=== PATIENT | female | born 1980 | race African-American/Black ===

== ENCOUNTER 2016-09-30 23:38 | Emergency (ER) | payer OTHER ==
[~2016-09-30] VITALS: Ht 170.2 cm; Wt 100.0 kg
[~2016-09-30 23:38] MED LIST: CEPH750C9 PO; POLY17PO6 PO; SULF1TAB7 PO
[2016-09-30 23:41] VITALS: BP 134/88; PULSE 76; RESP 16; O2SAT 99
--- NOTE | 2016-10-01 00:39 | ED.REPORT ---
HPI-Extremity Problem Lower Date of Service October 01, 2016 ED Provider: Dr. Bernabe Steiner D.O. A healthy 36 year old female with a remote history of right knee surgery presents to the ED with right knee pain onset 00:15 this evening, after moving it abnormally while putting a sheet on her couch. She also reports knee swelling and limited ROM due to pain. The patient denies additional injury/ trauma or other symptoms. Nursing Notes Stated Complaint: R KNEE PAIN Chief Complaint: Extremity Trauma Nursing Notes Reviewed: Yes Allergies: Coded Allergies: No Known Allergies (Unverified , 01/23/16) Scheduled Cephalexin (Keflex) 750 Mg Capsule 750 MG PO TID Polyethylene Glycol 3350 (Miralax) 17 Gm Powd.pack 17 GM PO DAILY dissolve 17g in 4 to 8 ounces of beverage and drink once daily Sulfamethoxazole/Trimeth 800-160 mg (Bactrim DS) 1 Each Tablet 1 TABLET PO BID General Time Seen by MD: 00:38 Chief Complaint Other (Right Knee Pain) Hx Obtained From: Patient Arrived By: Walk-in Onset Occurred: 16 - 30 minutes ago Symptom Duration: Since onset Location: : Knee right Quality: Painful Severity: Current: Moderate Severity: Maximum: Moderate Pertinent Negative: Relieved by nothing Immunizations: Tetanus w/in 5 - 10 yrs Recent Healthcare: No recent doctor visit Past Medical History Past Medical History None reported Past Surgical History R eye R knee cyst removal L breast Smoking History Never Smoker Social History Alcohol Use: Denies alcohol use Drug Use: Denies drug use Other Social History: Lives with children Ambulatory Status Independent Review of Systems Review of Systems Note: + Limited ROM of right knee due to pain Constitutional: Denies: Fever Musculoskeletal: Reports: Joint pain (Right knee), Joint swelling (Right knee) Complete sys rev & neg: except as marked. Respiratory: Denies: Non-productive cough, Shortness of breath GI: Denies: Diarrhea, Vomiting Physical Exam Physical Exam Notes: Initial Vital Signs Vital Signs (First) Date Time Temp Pulse Resp B/P Pulse Ox O2 Delivery O2 Flow Rate FiO2 09/30/16 23:41 36.5 76 16 134/88 99 Room Air Initial VS: Reviewed Head / Eyes: Atraumatic, Normocephalic ENT: Conjunctiva normal, No scleral icterus Neck: Supple, Full range of motion Respiratory: No respiratory distress Skin: Warm, Dry, No cyanosis Neurologic: Alert, Oriented, Nonfocal Psychiatric: Mood/affect normal, Behavior normal, Normal thought content Lower Extremity / Pelvis / MS: Neurologic intact, Vascular intact Right Knee: Positive: Joint effusion present, ROM painful, Tenderness present... (Joint line) General/Constitutional: Awake, Alert Interpretation & Diagnostics CT RIGHT KNEE W/ CONTRAST: IMPRESSION: Subtle depressed cortical fracture suspected along the anterior aspect of the lateral tibia plateau. No split component. Small knee effusion. Please see final report for other non-emergent incidental findings. Report transmitted to ED by radiologist Mya Taylor M.D at 10/01/2016 - 1:58: 24 AM PDT X-Ray Interpretation Xray Interpretation: questionable knee fracture abundant degenerative changes Study Performed: 3 View X-Ray Ordered: Knee right Interpretation / Wet Read by: Wet read ED physician Re-Eval/Medical Decision Med Decision/Clinical Course CT consistent with tibial plateau fracture. Will place in knee immobilizer and discharge with crutches, pain medication. Instructions to follow-up with orthopedics next week. Re-Evaluation/Progress : Time of Eval: 02:25 Patient Status: Condition improved Re-Evaluation/Progress Note: Discussed with patient CT and x-ray results, diagnosis, and plan for discharge. Follow-up and return to the ER instructions given. Patient agrees with plan for care and all questions were addressed. Counseled Regarding: Diagnosis, Need for follow-up, When/why to return to ED Discharge & Departure Impression: Primary Impression: Tibial plateau fracture Encounter type: initial encounter Fracture type: closed Laterality: right Qualified Code: S82.141A - Displaced bicondylar fracture of right tibia, initial encounter for closed fracture Disposition: Home Discharge Condition All VS Reviewed: Yes Condition: Improved Patient Instructions: Knee Sprain (ED), Crutch Instructions (ED) Additional Instructions: Thank you for entrusting us with your care. Your CT indicated a tibial plateau fracture. Wear the knee immobilizer until you are seen in follow-up. Use crutches for ambulation and do not bear weight on your knee. Naprosyn twice daily as needed for moderate pain. 1-2 Percocet every six hours as needed for severe pain. Do not drink alcohol, drive, or consume acetaminophen while taking Percocet. Call the referred orthopedist on Sunday for an appointment next week. Return to the ER with any new or worsening symptoms. Referrals: NOPCP (PCP) [facility] Jacob Hopkins MD Attestation Portions of this note were transcribed by Awa Altman. I, Dr. Steiner, personally performed the history, physical exam, and medical decision-making; I reviewed and confirmed the accuracy of the information in the transcribed note. Signed by: Marlon Macedo, 10/01/2016, 03:30 copies to: [facility]; Jacob Hopkins MD, Todd P DO October 01, 2016 00:38 AWA ALTMAN October 01, 2016 00:45
[2016-10-01] MEDS ORDERED: _HYDROcodone/APAP 5-325 mg Tablet PO PRN (00:50)
[2016-10-01 03:30] VITALS: BP 142/74; PULSE 74; RESP 18; O2SAT 98
--- NOTE | 2016-10-01 08:10 | DRSVH ---
PROCEDURE: CT KNEE RIGHT W/O CONTRAST ([id number]) INDICATIONS: trauma, pain, abnormal xrays TECHNIQUE: Noncontrast 1-1.5 mm axial sections acquired from the mid-patella to the proximal tibia, with coronal and sagittal reformats. COMPARISON: [facility], CR, XR KNEE 3VW RT, 10/01/2016, 0:41. FINDINGS: Image quality: Excellent. Bones: Small concavity and a cortical lucency noted in the anterior and lateral aspect of the lateral tibial plateau (series 5, image [id number] suspicious for minimally depressed lateral tibial plateau fr acture. Severe tricompartmental osteoarthritic degenerative changes are noted. Soft tissues: Trace suprapatellar joint effusion. Normal IMPRESSION: Possible minimally depressed fracture involving the anterior-lateral aspect of the latera l tibial plateau. Tricompartmental osteoarthritis. Dictated by: Teresa Joseph MD, PhD on 10/01/2016 at 8:05 Approved by: Teresa Joseph MD, PhD on 10/01/2016 at 8:09
--- NOTE | 2016-10-01 09:12 | DRSVH ---
PROCEDURE: X-RAY RIGHT KNEE, THREE VIEWS ([id number]) INDICATIONS: knee injury, ?effusion TECHNIQUE: 3 views of the knee were acquired. COMPARISON: [facility], , KNEE 3VW (RT), 05/06/2014, 13:22. FINDINGS: Bones: No fractures or dislocations. No suspicious bony lesions. Tricompartmental osteoarthritis. Soft tissues: Trace suprapatellar joint effusion. No suspicious soft tissue calcifications. IMPRESSION: Trace, nonspecific suprapatellar joint effusion. Osteoarthritis. Dictated by: Teresa Joseph MD, PhD on 10/01/2016 at 9:10 Approved by: Teresa Joseph MD, PhD on 10/01/2016 at 9:11
== END 2016-10-01 03:32 | disposition home or self-care (01) ==
LOC: SED 23:38
DX: S82.141A Displaced bicondylar fracture of right tibia, initial encounter for closed fracture (principal); X50.9XXA Other and unspecified overexertion or strenuous movements or postures, initial encounter; Y93.89 Activity, other specified; Y99.8 Other external cause status; Y92.018 Other place in single-family (private) house as the place of occurrence of the external cause; Z98.890 Other specified postprocedural states